=== PATIENT | male | born 2005 | race Hispanic/Latino ===

== ENCOUNTER 2024-09-10 17:20 | Emergency (ER) | payer OTHER ==
[~2024-09-10] VITALS: Ht 170.2 cm; Wt 83.9 kg
[~2024-09-10 17:20] MED LIST: FLUO10CA21 PO; HYDR-3421 PO
--- NOTE | 2024-09-10 18:22 | ERN ---
General Chief Complaint: Testicular Injury/Pain Stated Complaint: LEFT TESTICULAR PAIN Time Seen by MD: 17:20 Time Seen by Midlevel: 17:20 Source: patient History of Present Illness Initial Comments Patient is a 18 y/o male with no significant pmh presents to the ED for evaluation of left testicular pain that started x2 days ago. Denies any trauma, hematuria, dysuria, or any other symptoms at this time. Reports being sexually active but denies having any concern for a sexually transmitted disease. Allergies: Coded Allergies: No Known Allergies (Unverified Allergy, Unknown, 05/13/23) Home Meds Active Scripts Hydroxyzine HCl (Hydroxyzine HCl) 25 Mg Tablet, 25 MG PO HS PRN for INSOMNIA /SLEEP, #30 TAB 0 Refills Prov:ELIZABETH HUDSON AGPCNP 05/18/23 Fluoxetine HCl (Prozac) 10 Mg Capsule, 20 MG PO DAILY, #30 CAP 1 Refill Prov:ELIZABETH HUDSON AGPCNP 05/18/23 Past Medical History Past Medical History: No Pertinent History, Other Medical History Other: UNKNOWN MENTAL HEALTH DIAGNOSIS Past Surgical History: None Family History Family History: Negative Social History Social History: Negative, Lives with family ROS Dictation CONSTITUTIONAL: Negative except for HPI HEAD/FACE: Negative except for HPI EENT: Negative except for HPI RESPIRATORY: Negative except for HPI GASTROINTESTINAL/ABDOMINAL: Negative except for HPI GENITOURINARY: Negative except for HPI MUSCULOSKELETAL: Negative except for HPI INTEGUMENTARY: Negative except for HPI NEUROLOGICAL/PSYCH: Negative except for HPI HEMATOLOGIC/LYMPHATIC: Negative except for HPI All Systems Negative, Except as noted above. 13 point review of systems assessed and all negative except for above. Physical Exam Physical Exam Dictation Vital Signs reviewed General Appearance: Alert, oriented x 3, no acute distress, well developed, nourished. Head and Face: non-traumatic. Eyes: PERRL, pink conjunctivas, eyelid no trauma, anterior chamber with arcus senilis. Ears: Pinnas intact and no signs of trauma or erythema ear canals clear and no discharge TM no erythema Nose: No discharge, no bleeding. Oropharynx: Mouth normal, tongue pink, pharynx clear,no erythema, tonsils no exudates, no abscesses noted, mucous membrane moist Neck: Supple, non-tender, no thyromegaly, no masses, no JVD, no bruits Breast:Deferred Chest:No tenderness, no crepitus, no paradoxical movement, no retractions Lungs:Clear, well-ventilated, symmetric, no rales, no wheezing, no rhonchi, no stridor, good breath sounds bilaterally Heart: Regular rate, regular rhythm, no murmur, no gallops Vascular: no peripheral edema, Abdomen: Soft, positive bowel sounds, nondistended, no guarding, nontender, no rebound, no masses no hepatomegaly, no splenomegaly, no Segura's sign, no hernias. Rectal: Deferred Genital: Deferred Neurological: Normal speech, motor function intact, sensory function intact Musculoskeletal: Neck nontender, full range of motion, back nontender, full range of motion, Extremities: nontender, full range of motion Skin: Color pink, dry, no turgor, no rash, no lacerations, no abrasions, no contusions. Lymphatic: Deferred Results Laboratory and Microbiology Lab and Micro Result Laboratory Tests Test 09/10/24 18:46 Urine Color COLORLESS (YELLOW) Urine Appearance CLEAR (CLEAR) Urine pH 5.5 (5.0-8.0) Urine Specific [place] 1.012 (1.001-1.031) Urine Protein NEGATIVE mg/dL (NEGATIVE) Urine Glucose (UA) NEGATIVE mg/dL (NEGATIVE) Urine Ketones NEGATIVE mg/dL (NEGATIVE) Urine Occult Blood SMALL (NEGATIVE) H Urine Nitrate NEGATIVE (NEGATIVE) Urine Bilirubin NEGATIVE mg/dL (NEGATIVE) Urine Urobilinogen 0.2 mg/dL (0.2-1.0) Urine Leukocyte Esterase NEGATIVE Susan/uL Urine RBC 2-5 /HPF (0-1) H Urine WBC 0-1 /HPF (0-1) Urine Bacteria None /HPF (None Seen) Labs Reviewed?: Yes MDM MDM: 18-year-old male presenting to the ER with left testicular pain that started two days ago. Denies any direct injury or trauma. Denies any dysuria, hematuria, or any other symptoms. He does report being sexually active but does not have concern for any sexually transmitted disease at this time. Physical examination was deferred. Urinalysis does not show any evidence of infection. Scrotal ultrasound is unremarkable. We will discharged home with supportive management Differential diagnosis: Testicular torsion, varicocele, hydrocele, urinary tract infection There are no social concerns with this patient. Prescription drug management Prescriptions will include: Toradol Medical management and examination interpretation discussions were had by me with other qualified healthcare professionals as indicated for the patient's care. ED Course Orders Procedure Category Date Status Time Urinalysis Profile LAB 09/10/24 Complete 17:21 Us Scrotum & Contents US 09/10/24 Resulted 18:17 Vital Signs Date Time Temp Pulse Resp B/P (MAP) Pulse Ox O2 Delivery O2 Flow Rate FiO2 09/10/24 18:16 82 20 137/88 98 Room Air [facility] [address] [place] [id number] IMAGING REPORT Signed PATIENT: WIL JOE MR#: [id number] : 2005 SEX: M AGE: 18 LOCATION: [facility] ORDER 16 STATUS: REG ER REPORT#: [id number] SERVICE 16 REASON: left testicular pain r/o torsion ORDERING PHYSICIAN: MERCEDES LIND PROCEDURE: SCROTUM - US SCROTUM & CONTENTS Testicular ultrasound with color-flow Doppler Clinical Information: Left testicular pain Comparison: None Findings: The testes are of normal size and echogenicity. Vascular flow is preserved to both testes- there is no evidence of torsion. There is no evidence of inflammation. No fluid collections are seen. Specifically, there is no hydrocele. The epididymis is unremarkable bilaterally. There is no evidence of varicoceles. Scrotal wall is normal in thickness bilaterally. Impression: Normal exam. DICTATED BY: SIMA FLOWER MD DATE: 09/10/241834 ELECTRONICALLY SIGNED BY: SIMA FLOWER MD DATE: 09/10/241837 DX & DISP Disposition: Discharge Departure Impression: Primary Impression: Testicular pain, left Condition: Stable Scripts Ketorolac Tromethamine (Ketorolac Tromethamine) 10 Mg Tablet 1 TAB PO TID for pain for 5 Days, #15 TAB 0 Refills Prov: MERCEDES LIND 09/10/24 Additional Instructions: Your urinalysis does not show any evidence of infection. Your scrotal ultrasound does not show any evidence of testicular torsion, hydrocele, varicocele, or any other abnormality. Your ultrasound was normal. Follow up with your primary care provider for repeat testing in 2-3 days. Return to the ER for any new or worsening symptoms Referrals: SELF,REFERRAL (PCP) I have reviewed the case, and I agree with, Diagnosis and Plan I performed the substantive portion of the visit. I have reviewed and personally made and approve the management plan that is documented in the note by myself or the RENATO. I acknowledge for responsibility for the patient's management plan. MERCEDES LIND September 10, 2024 18:22
--- NOTE | 2024-09-10 18:38 | HMCIMG ---
Testicular ultrasound with color-flow Doppler Clinical Information: Left testicular pain Comparison: None Findings: The testes are of normal size and echogenicity. Vascular flow is preserved to both testes- there is no evidence of torsion. There is no evidence of inflammation. No fluid collections are seen. Specifically, there is no hydrocele. The epididymis is unremarkable bilaterally. There is no evidence of varicoceles. Scrotal wall is normal in thickness bilaterally. Impression: Normal exam.
[2024-09-10 19:34] LABS: ADD UA MICROSCOPIC YES; APPEARANCE,URINE CLEAR (CLEAR); BILIRUBIN,URINE NEGATIVE (NEGATIVE); COLOR,URINE COLORLESS (YELLOW); GLUCOSE, URINE (UA) NEGATIVE (NEGATIVE); KETONES,URINE NEGATIVE (NEGATIVE); LEUKOCYTE ESTERASE ,URINE NEGATIVE Leu/uL (NEGATIVE); NITRATE,URINE NEGATIVE (NEGATIVE); OCCULT BLOOD,URINE SMALL (NEGATIVE); PH,URINE 5.5 (5.0-8.0); PROTEIN,URINE NEGATIVE (NEGATIVE); UROBILINOGEN,URINE 0.2 mg/dL (0.2-1.0)
[2024-09-10 19:38] LABS: WBC,URINE 0-1 /HPF (0-1)
[2024-09-10] MEDS ORDERED: KETO10TA2 PO (21:18)
[2024-09-10] MEDS: ketOROlac 30MG VIAL (30MG/ML) IM ONE (21:21)
[2024-09-10 21:45] VITALS: BP 131/85; PULSE 80; RESP 20; TEMP 98.2; O2SAT 98
== END 2024-09-10 21:46 | disposition home or self-care (01) ==
LOC: EDH 17:20
DX: N50.812 Left testicular pain (principal); Z79.899 Other long term (current) drug therapy
CPT/HCPCS: 99285; 81001; 76870; 96372; J1885